=== PATIENT | male | born 1965 | race Two or more races ===

== ENCOUNTER 2017-08-07 12:30 | Inpatient (IN) | payer OTHER ==
[~2017-08-07] VITALS: Ht 170.2 cm; Wt 78.9 kg
[2017-08-21] MEDS ORDERED: PROBIOTIC & AC1 EACH PO (07:54)
[2017-08-21] MEDS ORDERED: PERCOCET 5-3251 EACH PO (07:54)
[2017-08-21] MEDS ORDERED: OMEPRAZOLE20 MG PO (07:54)
== END 2017-08-21 08:55 | disposition home or self-care (01) | DRG 331 ==
LOC: EDUNIT# 12:30 → SURG 08-17 06:47 → O/R 08-17 06:47 → SURH 08-17 07:00 → SURG 08-17 15:25
PROVIDERS: Surgery
PROC: 0DTP4ZZ Resection of Rectum, Percutaneous Endoscopic Approach (ICD-10-PCS; 2017-08-17)
PROC: 07TC4ZZ Resection of Pelvis Lymphatic, Percutaneous Endoscopic Approach (ICD-10-PCS; 2017-08-17)
PROC: 0D1B4Z4 Bypass Ileum to Cutaneous, Percutaneous Endoscopic Approach (ICD-10-PCS; 2017-08-17)
PROC: 0DJD8ZZ Inspection of Lower Intestinal Tract, Via Natural or Artificial Opening Endoscopic (ICD-10-PCS; 2017-08-17)
PROC: 0DTN4ZZ Resection of Sigmoid Colon, Percutaneous Endoscopic Approach (ICD-10-PCS; principal; 2017-08-17 07:00)
DX: C20 Malignant neoplasm of rectum (principal)

== ENCOUNTER 2017-08-15 05:42 | Day surgery (SDC) | payer OTHER | END 2017-08-15 10:30 | disposition home or self-care (01) | LOC: AMB-ENDOS 05:42 | DX: C20 Malignant neoplasm of rectum (principal) ==

== ENCOUNTER 2018-02-06 10:46 | Day surgery (SDC) | payer OTHER ==
[~2018-02-06 10:46] MED LIST: OMEPRAZOLE20 MG PO; PERCOCET 5-3251 EACH PO; PROBIOTIC & AC1 EACH PO
== END 2018-02-06 15:40 | disposition home or self-care (01) ==
LOC: AMB-ENDOS 10:46
DX: K62.4 Stenosis of anus and rectum (principal); C20 Malignant neoplasm of rectum; D12.3 Benign neoplasm of transverse colon; R73.01 Impaired fasting glucose; R91.1 Solitary pulmonary nodule

== ENCOUNTER 2018-04-23 14:00 | Inpatient (IN) | payer OTHER ==
[~2018-04-23] VITALS: Ht 172.7 cm; Wt 78.0 kg
[2018-05-09] MEDS ORDERED: IMODIUM A-D2 M2 PO (13:44)
[2018-05-09] MEDS ORDERED: ULTRACET PO (13:45)
[2018-05-09] MEDS ORDERED: AMBIEN10 MG PO (13:49)
[2018-05-17] MEDS ORDERED: OXYC1TAB9 PO (07:54)
[2018-05-17] MEDS ORDERED: INTESTINEX680 M1 PO (07:54)
== END 2018-05-17 11:54 | disposition home or self-care (01) | DRG 331 ==
LOC: SURG 05-09 13:00 → O/R 05-14 06:12 → SURG 05-14 06:12
PROVIDERS: Surgery
PROC: 0DQB4ZZ Repair Ileum, Percutaneous Endoscopic Approach (ICD-10-PCS; principal; 2018-05-14 16:45)
DX: C20 Malignant neoplasm of rectum (principal); Z43.2 Encounter for attention to ileostomy; R73.01 Impaired fasting glucose

== ENCOUNTER 2018-12-18 09:09 | Day surgery (SDC) | payer OTHER ==
[~2018-12-18 09:09] MED LIST changes: +AMBIEN10 MG PO; +IMODIUM A-D2 M2 PO; +INTESTINEX680 M1 PO; +OXYC1TAB9 PO; +ULTRACET PO
== END 2018-12-18 12:45 | disposition home or self-care (01) ==
LOC: AMB-ENDOS 09:09
DX: C20 Malignant neoplasm of rectum (principal)

== ENCOUNTER 2019-05-12 10:42 | Emergency (ER) | payer OTHER ==
[~2019-05-12] VITALS: Ht 170.2 cm; Wt 77.1 kg
[2019-05-12] MEDS ORDERED: PAXIL30 MG PO (11:13)
[2019-05-12] MEDS ORDERED: IMODIUM A-D2 MG PO (11:14)
== END 2019-05-12 15:13 | disposition home or self-care (01) ==
LOC: ER 10:42
DX: K29.70 Gastritis, unspecified, without bleeding (principal); K58.9 Irritable bowel syndrome, unspecified

== ENCOUNTER 2020-01-07 07:20 | Day surgery (SDC) | payer OTHER ==
[~2020-01-07 07:20] MED LIST changes: +IMODIUM A-D2 MG PO; +PAXIL30 MG PO
== END 2020-01-07 11:50 | disposition home or self-care (01) ==
LOC: AMB-ENDOS 07:20
PROVIDERS: ATTEND Surgery
DX: K62.89 Other specified diseases of anus and rectum (principal)

== ENCOUNTER 2021-04-27 08:55 | Day surgery (SDC) | payer OTHER | END 2021-04-27 13:55 | disposition home or self-care (01) | LOC: AMB-ENDOS 08:55 | PROVIDERS: ATTEND Surgery | DX: D12.2 Benign neoplasm of ascending colon (principal) ==